=== PATIENT | male | born 1990 | race African-American/Black ===

== ENCOUNTER 2022-04-06 15:46 | Emergency (ER) | payer SELFPAY ==
[~2022-04-06] VITALS: Ht 182.9 cm; Wt 84.8 kg
--- NOTE | 2022-04-06 15:53 | NUR ---
TO ER CHAIR 1, 2ND DIGIT,LEFT HAND,CRUSHED BY DOOR, AAOX3, BREATHING EVEN AND NON LABORED
[2022-04-06] MEDS ORDERED: LIDOCAINE 1% INJ 50 ML MDV IJ ONE (16:00)
[2022-04-06] MEDS ORDERED: TDAP [DIPH/PERTUSSIS/TET] 0.5 ML VIAL IM ONE ×2 (16:00→17:54)
[2022-04-06] MEDS ORDERED: LIDOCAINE HCL/PF 1% 30 ML VIAL TP ONE (16:00)
[2022-04-06] MEDS ORDERED: HYDR-4209 PO (17:42)
[2022-04-06] MEDS ORDERED: KETO10TA2 PO (17:42)
[2022-04-06] MEDS ORDERED: AMOX-430 PO (17:42)
[2022-04-06 18:01] VITALS: BP 136/74
--- NOTE | 2022-04-06 18:01 | NUR ---
Patient discharged to home in stable condition. Written and verbal after care instructions given. Patient verbalizes understanding of instruction.
== END 2022-04-06 18:03 | disposition home or self-care (01) ==
LOC: ER 15:58
DX: S62.641A Nondisplaced fracture of proximal phalanx of left index finger, initial encounter for closed fracture (principal); S61.211A Laceration without foreign body of left index finger without damage to nail, initial encounter; Z60.2 Problems related to living alone; Z79.899 Other long term (current) drug therapy; W23.0XXA Caught, crushed, jammed, or pinched between moving objects, initial encounter; Y93.89 Activity, other specified; Y92.89 Other specified places as the place of occurrence of the external cause; Y99.8 Other external cause status
CPT/HCPCS: 99283; 12001; 90471; 90715; 73140; J3490 ×2